=== PATIENT | male | born 1965 | race Caucasian/White ===

== ENCOUNTER 2020-10-26 08:44 | Outpatient (CLI) | payer OTHER | END 2020-10-26 09:27 | disposition home or self-care (01) | LOC: TOM 08:44 | PROVIDERS: ATTEND Urology | DX: R10.84 Generalized abdominal pain (principal) ==

== ENCOUNTER 2020-11-23 09:07 | Outpatient (CLI) | payer OTHER | END 2020-11-23 09:08 | disposition home or self-care (01) | LOC: LAB 09:07 | PROVIDERS: ATTEND Urology | DX: C61 Malignant neoplasm of prostate (principal) ==

== ENCOUNTER 2020-12-27 07:15 | Inpatient (IN) | payer OTHER ==
[~2020-12-27] VITALS: Ht 172.7 cm; Wt 88.5 kg
[2021-01-02] MEDS ORDERED: WAL-FEX ALLERG180 MG (08:07)
[2021-01-02] MEDS ORDERED: ATORVASTATIN CA10 MG (08:07)
[2021-01-02] MEDS ORDERED: FUSION PLUS CA1 EACH (08:07)
== END 2021-01-04 14:06 | disposition home or self-care (01) | DRG 708 ==
LOC: O/R 01-02 05:55 → SURH 01-02 07:00 → SURG 01-02 14:50 → SURH 01-02 17:08
PROVIDERS: ADMIT Urology; ATTEND Urology
PROC: 0VT30ZZ Resection of Bilateral Seminal Vesicles, Open Approach (ICD-10-PCS; 2021-01-02)
PROC: 07BC0ZZ Excision of Pelvis Lymphatic, Open Approach (ICD-10-PCS; 2021-01-02)
PROC: 0VT00ZZ Resection of Prostate, Open Approach (ICD-10-PCS; principal; 2021-01-02 07:00)
DX: C61 Malignant neoplasm of prostate (principal)

== ENCOUNTER 2021-06-13 09:46 | Outpatient (CLI) | payer OTHER ==
[~2021-06-13 09:46] MED LIST: ATORVASTATIN CA10 MG; FUSION PLUS CA1 EACH; WAL-FEX ALLERG180 MG
== END 2021-06-13 10:20 | disposition home or self-care (01) ==
LOC: TOM 09:46
PROVIDERS: ATTEND Otolaryngology
DX: J32.9 Chronic sinusitis, unspecified (principal)

== ENCOUNTER 2021-06-28 13:02 | Outpatient (CLI) | payer OTHER | END 2021-06-28 13:17 | disposition home or self-care (01) | LOC: SONOGRAMA 13:02 | PROVIDERS: ATTEND Specialist | DX: Z13.29 Encounter for screening for other suspected endocrine disorder (principal) ==

== ENCOUNTER 2021-07-15 08:39 | Outpatient (CLI) | payer OTHER | END 2021-07-15 08:55 | disposition home or self-care (01) | LOC: SONOGRAMA 08:39 | PROVIDERS: ATTEND Surgery | DX: K43.0 Incisional hernia with obstruction, without gangrene (principal) ==

== ENCOUNTER 2021-12-11 08:18 | Outpatient (CLI) | payer OTHER | END 2021-12-11 08:22 | disposition home or self-care (01) | LOC: LAB 08:18 | DX: C61 Malignant neoplasm of prostate (principal) ==

== ENCOUNTER → 2022-04-25 08:30 | Outpatient (CLI) | payer OTHER | END | disposition home or self-care (01) | LOC: LAB 08:30 | PROVIDERS: ATTEND General Practice | DX: Z12.5 Encounter for screening for malignant neoplasm of prostate (principal) ==

== ENCOUNTER 2024-03-19 14:11 | Emergency (ER) | payer OTHER ==
[~2024-03-19] VITALS: Ht 172.7 cm; Wt 93.4 kg
[2024-03-19] MEDS ORDERED: OSEL75CA PO (17:22)
== END 2024-03-19 17:31 | disposition home or self-care (01) ==
LOC: ER 14:13
DX: J10.1 Influenza due to other identified influenza virus with other respiratory manifestations (principal)